=== PATIENT | female | born 1990 ===

== ENCOUNTER 2021-07-03 14:30 | Emergency (ER) | payer OTHER ==
[~2021-07-03] VITALS: Ht 160 cm; Wt 81.6 kg
== END 2021-07-03 21:12 | disposition home or self-care (01) ==
LOC: ER 14:30
DX: S39.012A Strain of muscle, fascia and tendon of lower back, initial encounter (principal); V89.2XXA Person injured in unspecified motor-vehicle accident, traffic, initial encounter; Y93.89 Activity, other specified; Y92.89 Other specified places as the place of occurrence of the external cause; Y99.8 Other external cause status